=== PATIENT | male | born 1955 | race Caucasian/White ===

== ENCOUNTER 2020-07-25 04:16 | Emergency (ER) | payer OTHER, MEDICARE ==
[~2020-07-25] VITALS: Ht 185.4 cm; Wt 89.2 kg
[2020-07-25 04:28] VITALS: BP 151/95
[2020-07-25] MEDS ORDERED: LIDOcaine 2% 10ml TOPICAL JELLY (Urojet) MM ONE (04:50)
--- NOTE | 2020-07-25 05:10 | NUR ---
bladder scan >235 ml. Pt catheterized w/ 14 Martiniqu[place] coude using Urojet. 300 mls urine out.
[2020-07-25 05:13] LABS: CLARITY,URINE CLEAR (Clear); COLOR,URINE YELLOW (Yellow); GLUCOSE, URINE NEGATIVE (Neg); KETONES,URINE NEGATIVE (Neg); LEUKOCYTE ESTERASE ,URINE NEGATIVE (Neg); NITRITES, URINE NEGATIVE (Neg); OCCULT BLOOD,URINE NEGATIVE (Neg); PH,URINE 6.5 (4.8-8.0); PROTEIN,URINE NEGATIVE (Neg); UROBILINOGEN,URINE 0.2 E.U/dL (0.2-1.0)
[2020-07-25 05:19] LABS: UA COLLECTION TYPE CLN CATCH MIDSTREAM
[2020-07-25] MEDS ORDERED: FLO0.4C PO (05:27)
== END 2020-07-25 06:03 | disposition home or self-care (01) ==
LOC: ER 04:17
DX: R33.9 Retention of urine, unspecified (principal)
CPT/HCPCS: 51702; 81003; 99284

== ENCOUNTER 2020-08-02 18:21 | Emergency (ER) | payer OTHER, MEDICARE ==
[~2020-08-02] VITALS: Ht 182.9 cm; Wt 87.6 kg
[~2020-08-02 18:21] MED LIST: FLO0.4C PO
[2020-08-02] MEDS ORDERED: LIDOcaine 2% 10ml TOPICAL JELLY (Urojet) TP ONE (18:40)
[2020-08-02 18:46] LABS: CLARITY,URINE CLOUDY (Clear); COLOR,URINE STRAW (Yellow); GLUCOSE, URINE NEGATIVE (Neg); KETONES,URINE NEGATIVE (Neg); LEUKOCYTE ESTERASE ,URINE LARGE (Neg); NITRITES, URINE POSITIVE (Neg); OCCULT BLOOD,URINE SMALL (Neg); PH,URINE 6.5 (4.8-8.0); PROTEIN,URINE NEGATIVE (Neg); UROBILINOGEN,URINE 0.2 E.U/dL (0.2-1.0)
[2020-08-02 18:51] LABS: UA COLLECTION TYPE CLN CATCH MIDSTREAM
[2020-08-02 18:53] LABS: MUCUS STRANDS FEW /LPF (Neg); SQUAMOUS EPITHELIAL CELL,UR FEW /LPF (FEW); TRANSITIONAL EPI CELLS,URINE FEW /HPF
[2020-08-02 18:54] LABS: BACTERIA,URINE 4+ /HPF (Neg); WBC,URINE 30-50 /HPF (0-4)
[2020-08-02 18:55] LABS: RBC,URINE 0-2 /HPF (0-2)
--- NOTE | 2020-08-02 19:12 | NUR ---
PT BLADDER SCANNED BY JESSI MOSLEY PRIOR TO VOID BLADDER AT 129 ML . PT DECLINING CATH PLACEMENT . STATES HE HAS DISCOMFORT AND BURNING WITH THE CATH IN PLACE . STATES IT WAS REMOVED AT 12 TODAY AND WOULD LIKE TO AVOID HAVING IT PLACED IF POSSIBLE. SPOKE WITH DR Park ABOUT LABS BEING CANCELLED AND THE URINE CX SHOWING RESULTS OF A POSSIBLE UTI , NOTIFIED PRIMARY RN DORI OF BLADDER SCAN RESULTS AND PATIENT REFUSEAL OF CATH PLACEMNET UNTL HE SPEAKS TO THE MD .
[2020-08-02] MEDS ORDERED: acetaminophen 325mg tablet PO ONE (19:25)
[2020-08-02 21:02] VITALS: BP 122/78
[2020-08-02] MEDS ORDERED: cephalexin 250mg capsule PO ONE (21:40)
[2020-08-02] MEDS ORDERED: CEPH-572 PO ×2 (21:41→21:45)
[2020-08-02] MEDS ORDERED: PHEN-716 PO (21:45)
[2020-08-02] MEDS ORDERED: phenazopyridine 100mg tablet PO ONE (21:45)
[2020-08-03] MEDS ORDERED: CEPH-572 PO (02:37)
[2020-08-03] MEDS ORDERED: FLO0.4C PO (02:37)
[2020-08-03] MEDS ORDERED: PHEN-716 PO (02:37)
== END 2020-08-02 22:00 | disposition home or self-care (01) ==
LOC: ER 18:21
DX: N39.0 Urinary tract infection, site not specified (principal); R33.9 Retention of urine, unspecified; R10.30 Lower abdominal pain, unspecified; Z79.2 Long term (current) use of antibiotics; Z79.899 Other long term (current) drug therapy
CPT/HCPCS: 81001; 87077; 87088; 87186; 99284

== ENCOUNTER 2020-10-11 16:36 | Inpatient (IN) | payer OTHER, MEDICARE ==
[~2020-10-11] VITALS: Ht 365.8 cm; Wt 81.0 kg
[~2020-10-11 16:36] MED LIST changes: +APIX5TAB3 PO; +DILT180C66 PO; +PHEN-716 PO
[2020-10-11 17:01] LABS: CLARITY,URINE CLOUDY (Clear); COLOR,URINE AMBER (Yellow); GLUCOSE, URINE NEGATIVE (Neg); KETONES,URINE TRACE mg/dl (Neg); LEUKOCYTE ESTERASE ,URINE MODERATE (Neg); NITRITES, URINE POSITIVE (Neg); OCCULT BLOOD,URINE LARGE (Neg); PROTEIN,URINE >=300 mg/dl (Neg); UROBILINOGEN,URINE 0.2 E.U/dL (0.2-1.0)
[2020-10-11 17:05] LABS: UA COLLECTION TYPE FOLEY CATH
[2020-10-11 17:18] LABS: RBC,URINE TNTC /HPF (0-2); WBC,URINE TNTC /HPF (0-4)
[2020-10-11 17:19] LABS: BACTERIA,URINE 2+ /HPF (Neg); SQUAMOUS EPITHELIAL CELL,UR FEW /LPF (FEW)
[2020-10-11 17:20] LABS: MUCUS STRANDS FEW /LPF (Neg)
[2020-10-11 17:21] LABS: WBC CLUMPS,URINE FEW /HPF (NEGATIVE)
[2020-10-11] MEDS ORDERED: LIDOcaine 2% 10ml TOPICAL JELLY (Urojet) TP ONE (17:40)
[2020-10-11 18:14] LABS: BASOPHILS % (AUTO) 0.4 % (0-1); EOSINOPHILS # (AUTO) 0.1 X10'3 (0-0.9); EOSINOPHILS % (AUTO) 1.2 % (0-6); HEMATOCRIT 46.7 % (42.0-52.0); HEMOGLOBIN 15.9 g/dl (14.0-17.9); LYMPHOCYTES # (AUTO) 1.6 X10'3 (1.1-4.8); LYMPHOCYTES % (AUTO) 19.5 % (21-51); MEAN CORPUSCULAR HEMOGLOBIN 31.2 PG (27.0-31.0); MEAN CORPUSCULAR HGB CONC 34.1 g/dL (33.0-36.5); MEAN CORPUSCULAR VOLUME 91.6 FL (78-98); MEAN PLATELET VOLUME 8.5 FL (7.4-10.4); MONOCYTES % (AUTO) 12.1 % (2-12); NEUTROPHILS # (AUTO) 5.5 X10'3 (1.8-7.7); NEUTROPHILS % (AUTO) 66.8 % (42-75); PLATELET COUNT 295 X10'3 (140-440); RED CELL DISTRIBUTION WIDTH 13.7 % (11.5-14.5); WHITE BLOOD COUNT 8.2 X10'3 (4.5-11.0)
[2020-10-11 18:15] LABS: ALANINE AMINOTRANSFERASE 33 U/L (12-78); ALBUMIN 4.5 G/DL (3.4-5.0); ALBUMIN/GLOBULIN RATIO 1.4 (1.1-1.5); ALKALINE PHOSPHATASE 70 IU/L (46-116); ANION GAP 13 (8-16); ASPARTATE AMINO TRANSFERASE 23 U/L (10-37); BILIRUBIN,TOTAL 0.6 MG/DL (0.1-1.0); BLOOD UREA NITROGEN 37 MG/DL (7-18); BUN/CREATININE RATIO 30.6 (5.4-32.0); CALCIUM 9.9 MG/DL (8.5-10.1); CHLORIDE 106 MMOL/L (99-107); CREATININE 1.21 MG/DL (0.60-1.10); GLUCOSE 111 MG/DL (70-104); MAGNESIUM 2.1 MG/DL (1.5-2.4); SODIUM 142 MMOL/L (135-145); TOTAL CARBON DIOXIDE 22.6 MMOL/L (24-32); TOTAL PROTEIN 7.7 G/DL (6.4-8.2); eGFR 60 ML/MIN
[2020-10-11] MEDS ORDERED: diltiazem 5mg/ml 5ml inj. IV ONE (18:30)
[2020-10-11] MEDS ORDERED: normal saline 1000ml 1,000 ML IV ONE (18:30)
[2020-10-11] MEDS ORDERED: CefTRIAXone/D5W-Rocephin 1gm 50 ML IV STA (19:14)
[2020-10-11] MEDS ORDERED: acetaminophen 325mg tablet PO PRN (20:30)
[2020-10-11] MEDS ORDERED: potassium Cl 20 mEq SR tablet PO PRN (20:30)
[2020-10-11] MEDS ORDERED: mag hydrox/Alum hydrox/simeth 30ml oral suspension PO PRN (20:30)
[2020-10-11] MEDS ORDERED: magnesium hydroxide 30ml (MOM) UD suspension PO PRN (20:30)
[2020-10-11] MEDS ORDERED: magnesium Cl slow-release 64mg tablet PO PRN (20:30)
[2020-10-11] MEDS ORDERED: magnesium 4gm in 100ml NS 100 ML IV PRN (20:30)
[2020-10-11] MEDS ORDERED: diltiazem 30mg tablet PO ONE (20:30)
[2020-10-11] MEDS ORDERED: magnesium 2GM in 50ml NS 50 ML IV PRN (20:30)
[2020-10-11] MEDS ORDERED: HYDROcodone/acetaminophen 5mg/325mg tablet PO PRN (20:30)
[2020-10-11] MEDS ORDERED: potassium Cl 40MEQ/1/2NS 520ml 520 ML IV PRN ×2 (20:30)
[2020-10-11] MEDS ORDERED: ondansetron/PF 4mg/2ml inj IV PRN (20:30)
[2020-10-11] MEDS: normal saline 1000ml 1,000 ML IV SCH (21:10)
[2020-10-11 22:00] VITALS: BP 131/97
--- NOTE | 2020-10-11 23:25 | NUR ---
Negro placed in ED before arriving to floor Addendum: 10/11/20 at 2326 by Jolanta Cerrato RN Amended: Links added.
[2020-10-12] MEDS: morphine 2 MG/ML inj. syringe IV PRN ×2 (01:23→16:28)
[2020-10-12 02:00] VITALS: BP 104/62
[2020-10-12] MEDS: temazepam 15mg capsule PO PRN (02:54)
--- NOTE | 2020-10-12 06:35 | NUR ---
Patient in room PCU 3016. I have received report from JESSI Stover and had the opportunity to ask questions and assume patient care.
[2020-10-12 07:00] VITALS: BP 115/77
[2020-10-12 07:19] LABS: BASOPHILS % (AUTO) 0.4 % (0-1); EOSINOPHILS # (AUTO) 0.2 X10'3 (0-0.9); EOSINOPHILS % (AUTO) 3.5 % (0-6); HEMOGLOBIN 14.1 g/dl (14.0-17.9); LYMPHOCYTES % (AUTO) 29.8 % (21-51); MEAN CORPUSCULAR HEMOGLOBIN 31.6 PG (27.0-31.0); MEAN CORPUSCULAR HGB CONC 34.3 g/dL (33.0-36.5); MEAN CORPUSCULAR VOLUME 92.1 FL (78-98); MEAN PLATELET VOLUME 8.5 FL (7.4-10.4); MONOCYTES % (AUTO) 14.5 % (2-12); NEUTROPHILS # (AUTO) 3.5 X10'3 (1.8-7.7); NEUTROPHILS % (AUTO) 51.8 % (42-75); PLATELET COUNT 244 X10'3 (140-440); RED BLOOD COUNT 4.45 X10'6 (4.70-6.10); RED CELL DISTRIBUTION WIDTH 13.2 % (11.5-14.5); WHITE BLOOD COUNT 6.8 X10'3 (4.5-11.0)
[2020-10-12 07:42] LABS: ALANINE AMINOTRANSFERASE 28 U/L (12-78); ALBUMIN 3.5 G/DL (3.4-5.0); ALBUMIN/GLOBULIN RATIO 1.3 (1.1-1.5); ANION GAP 9 (8-16); ASPARTATE AMINO TRANSFERASE 19 U/L (10-37); BILIRUBIN,TOTAL 0.9 MG/DL (0.1-1.0); BLOOD UREA NITROGEN 27 MG/DL (7-18); BUN/CREATININE RATIO 26.5 (5.4-32.0); CALCIUM 8.5 MG/DL (8.5-10.1); CHLORIDE 105 MMOL/L (99-107); CREATININE 1.02 MG/DL (0.60-1.10); GLUCOSE 91 MG/DL (70-104); POTASSIUM 3.3 MMOL/L (3.5-5.1); SODIUM 140 MMOL/L (135-145); TOTAL CARBON DIOXIDE 25.8 MMOL/L (24-32); TOTAL PROTEIN 6.3 G/DL (6.4-8.2); eGFR 73 ML/MIN
[2020-10-12 07:59] LABS: ALKALINE PHOSPHATASE 56 IU/L (46-116)
[2020-10-12] MEDS: tamsulosin 0.4mg capsule PO SCH (08:30)
[2020-10-12] MEDS: normal saline 1000ml 1,000 ML IV SCH ×2 (08:30→16:28)
[2020-10-12] MEDS: apixaban 5mg tablet PO SCH ×2 (08:30→21:38)
[2020-10-12] MEDS: diltiazem CD 180mg cap (once-daily) PO SCH (08:30)
[2020-10-12] MEDS: CefTRIAXone/D5W-Rocephin 1gm 50 ML IV SCH (08:30)
[2020-10-12] MEDS: potassium Cl 20 mEq SR tablet PO PRN ×3 (08:54→21:38)
[2020-10-12] MEDS: K and/or MAG REPLACEMENT MC SCH ×2 (08:55→20:00)
[2020-10-12 11:00] VITALS: BP 124/85
[2020-10-12] MEDS: oxybutynin 5mg tablet PO SCH ×2 (13:14→21:38)
[2020-10-12] MEDS: phenazopyridine 100mg tablet PO SCH ×2 (13:14→18:49)
[2020-10-12 15:00] VITALS: BP 102/68
--- NOTE | 2020-10-12 17:46 | NUR ---
Paged Dr Bucky Goodman, Kole [id number] The ER has had the bladder scanner, I will let NOC nurse know to scan pt when scanner arrives back. Thanks Nadine [phone]
--- NOTE | 2020-10-12 18:09 | NUR ---
Problems reprioritized. Patient report given, questions answered & plan of care reviewed with JESSI Stover. Pt resting at change of shift.
[2020-10-12 19:00] VITALS: BP 103/78
--- NOTE | 2020-10-12 20:14 | NUR ---
Notified Dr hill scanned patient, with amount of 95cc. He voided 35 cc however he is still leaking urine around banerjee. Unable to calculate exact void amount due to leakage Awaiting response/orders
[2020-10-12] MEDS: lactobacillus rhamnosus 10,000 MMU CELLS/CAPSULE PO SCH (21:38)
[2020-10-12 22:00] VITALS: BP 107/71
[2020-10-13] MEDS: temazepam 15mg capsule PO PRN (00:35)
[2020-10-13 02:00] VITALS: BP 96/70
[2020-10-13 06:00] VITALS: BP 129/78
--- NOTE | 2020-10-13 06:19 | NUR ---
Patient in room PCU 3016. I have received report from JESSI Stover and had the opportunity to ask questions and assume patient care.
[2020-10-13 06:48] LABS: BASOPHILS % (AUTO) 0.6 % (0-1); EOSINOPHILS # (AUTO) 0.2 X10'3 (0-0.9); EOSINOPHILS % (AUTO) 4.2 % (0-6); LYMPHOCYTES # (AUTO) 1.8 X10'3 (1.1-4.8); LYMPHOCYTES % (AUTO) 31.2 % (21-51); MEAN CORPUSCULAR HEMOGLOBIN 31.9 PG (27.0-31.0); MEAN CORPUSCULAR HGB CONC 34.8 g/dL (33.0-36.5); MEAN CORPUSCULAR VOLUME 91.8 FL (78-98); MEAN PLATELET VOLUME 8.2 FL (7.4-10.4); MONOCYTES # (AUTO) 0.8 X10'3 (0-0.9); MONOCYTES % (AUTO) 13.1 % (2-12); NEUTROPHILS % (AUTO) 50.9 % (42-75); PLATELET COUNT 252 X10'3 (140-440); RED BLOOD COUNT 4.69 X10'6 (4.70-6.10); RED CELL DISTRIBUTION WIDTH 13.1 % (11.5-14.5); WHITE BLOOD COUNT 5.8 X10'3 (4.5-11.0)
[2020-10-13 07:11] LABS: ALANINE AMINOTRANSFERASE 26 U/L (12-78); ALBUMIN 3.7 G/DL (3.4-5.0); ALBUMIN/GLOBULIN RATIO 1.2 (1.1-1.5); ALKALINE PHOSPHATASE 56 IU/L (46-116); ANION GAP 10 (8-16); ASPARTATE AMINO TRANSFERASE 18 U/L (10-37); BLOOD UREA NITROGEN 18 MG/DL (7-18); BUN/CREATININE RATIO 18.2 (5.4-32.0); CHLORIDE 106 MMOL/L (99-107); CREATININE 0.99 MG/DL (0.60-1.10); GLUCOSE 96 MG/DL (70-104); MAGNESIUM 2.3 MG/DL (1.5-2.4); POTASSIUM 3.9 MMOL/L (3.5-5.1); SODIUM 141 MMOL/L (135-145); TOTAL CARBON DIOXIDE 24.8 MMOL/L (24-32); TOTAL PROTEIN 6.7 G/DL (6.4-8.2); eGFR 76 ML/MIN
[2020-10-13] MEDS: K and/or MAG REPLACEMENT MC SCH ×2 (08:00→20:00)
[2020-10-13] MEDS: CefTRIAXone/D5W-Rocephin 1gm 50 ML IV SCH (09:08)
[2020-10-13] MEDS: diltiazem CD 180mg cap (once-daily) PO SCH (09:09)
[2020-10-13] MEDS: apixaban 5mg tablet PO SCH ×2 (09:09→19:55)
[2020-10-13] MEDS: phenazopyridine 100mg tablet PO SCH ×3 (09:09→19:55)
[2020-10-13] MEDS: tamsulosin 0.4mg capsule PO SCH (09:09)
[2020-10-13] MEDS: oxybutynin 5mg tablet PO SCH ×3 (09:09→18:11)
[2020-10-13] MEDS: lactobacillus rhamnosus 10,000 MMU CELLS/CAPSULE PO SCH ×2 (09:09→19:55)
[2020-10-13 11:00] VITALS: BP 114/87
[2020-10-13] MEDS ORDERED: opium/belladonna alkaloids No. 15A 30mg rectal suppository RC PRN (11:50)
[2020-10-13] MEDS: levoFLOXACIN 500mg tablet PO SCH (13:11)
[2020-10-13 15:00] VITALS: BP 100/64
[2020-10-13 18:00] VITALS: BP 117/70
--- NOTE | 2020-10-13 18:28 | NUR ---
Problems reprioritized. Patient report given, questions answered & plan of care reviewed with JESSI Breen. All pt needs met at this time.
--- NOTE | 2020-10-13 18:30 | NUR ---
Patient in room U 3016. I have received report from JESSI Mccoy and had the opportunity to ask questions and assume patient care. Patient resting in bed, no signs of distress. Safety measures in place, bed in low and locked position. Call light and personal items within reach. Will continue to monitor throughout shift.
[2020-10-13 22:00] VITALS: BP 114/80
[2020-10-14 02:00] VITALS: BP 113/82
--- NOTE | 2020-10-14 06:31 | NUR ---
Patient in room PCU 3016. I have received report from JESSI Breen and had the opportunity to ask questions and assume patient care. Pt sleeping comfortably at change of shift.
[2020-10-14 07:00] VITALS: BP 115/77
[2020-10-14 07:00] LABS: BASOPHILS % (AUTO) 0.8 % (0-1); EOSINOPHILS # (AUTO) 0.2 X10'3 (0-0.9); EOSINOPHILS % (AUTO) 3.9 % (0-6); HEMATOCRIT 44.3 % (42.0-52.0); HEMOGLOBIN 15.2 g/dl (14.0-17.9); LYMPHOCYTES # (AUTO) 1.6 X10'3 (1.1-4.8); LYMPHOCYTES % (AUTO) 25.2 % (21-51); MEAN CORPUSCULAR HEMOGLOBIN 31.2 PG (27.0-31.0); MEAN CORPUSCULAR HGB CONC 34.2 g/dL (33.0-36.5); MEAN CORPUSCULAR VOLUME 91.3 FL (78-98); MEAN PLATELET VOLUME 8.5 FL (7.4-10.4); MONOCYTES # (AUTO) 0.9 X10'3 (0-0.9); MONOCYTES % (AUTO) 13.9 % (2-12); NEUTROPHILS # (AUTO) 3.5 X10'3 (1.8-7.7); NEUTROPHILS % (AUTO) 56.2 % (42-75); PLATELET COUNT 265 X10'3 (140-440); RED BLOOD COUNT 4.86 X10'6 (4.70-6.10); RED CELL DISTRIBUTION WIDTH 13.3 % (11.5-14.5); WHITE BLOOD COUNT 6.2 X10'3 (4.5-11.0)
--- NOTE | 2020-10-14 07:03 | NUR ---
Problems reprioritized. Patient report given, questions answered & plan of care reviewed with JESSI Mccoy. VSS. Medications administered as ordered. Safety measures in place, bed in low and locked position. Call light and personal items within reach. Will continue to monitor throughout shift.
[2020-10-14 07:58] LABS: ALANINE AMINOTRANSFERASE 26 U/L (12-78); ALBUMIN 3.8 G/DL (3.4-5.0); ALBUMIN/GLOBULIN RATIO 1.2 (1.1-1.5); ALKALINE PHOSPHATASE 58 IU/L (46-116); ANION GAP 10 (8-16); ASPARTATE AMINO TRANSFERASE 15 U/L (10-37); BILIRUBIN,TOTAL 0.9 MG/DL (0.1-1.0); CHLORIDE 105 MMOL/L (99-107); CREATININE 1.15 MG/DL (0.60-1.10); GLUCOSE 96 MG/DL (70-104); MAGNESIUM 2.2 MG/DL (1.5-2.4); POTASSIUM 3.7 MMOL/L (3.5-5.1); SODIUM 141 MMOL/L (135-145); TOTAL CARBON DIOXIDE 26.5 MMOL/L (24-32); eGFR 64 ML/MIN
[2020-10-14] MEDS ORDERED: diltiazem CD 120mg capsule (once-daily) PO SCH (08:00)
[2020-10-14] MEDS ORDERED: diltiazem CD 180mg cap (once-daily) PO SCH (08:00)
[2020-10-14] MEDS: K and/or MAG REPLACEMENT MC SCH ×2 (08:00→20:00)
[2020-10-14 08:20] LABS: BLOOD UREA NITROGEN 22 MG/DL (7-18); BUN/CREATININE RATIO 19.1 (5.4-32.0)
[2020-10-14] MEDS: tamsulosin 0.4mg capsule PO SCH (09:05)
[2020-10-14] MEDS: apixaban 5mg tablet PO SCH ×2 (09:05→20:46)
[2020-10-14] MEDS: phenazopyridine 100mg tablet PO SCH ×3 (09:05→20:45)
[2020-10-14] MEDS: lactobacillus rhamnosus 10,000 MMU CELLS/CAPSULE PO SCH ×2 (09:05→20:45)
[2020-10-14] MEDS: oxybutynin 5mg tablet PO SCH ×5 (09:07→20:46)
[2020-10-14 11:00] VITALS: BP 122/79
[2020-10-14] MEDS: levoFLOXACIN 500mg tablet PO SCH (11:47)
[2020-10-14 15:00] VITALS: BP 104/76
[2020-10-14] MEDS ORDERED: iohexol 300mg/ml 100ml inj. ONE (15:34)
[2020-10-14] MEDS: fluconazole 100mg tablet PO SCH (16:09)
[2020-10-14] MEDS: normal saline 1000ml 1,000 ML IV SCH (16:12)
[2020-10-14 18:00] VITALS: BP 113/74
--- NOTE | 2020-10-14 18:27 | NUR ---
Problems reprioritized. Patient report given, questions answered & plan of care reviewed with JESSI Breen. Pt sitting up in bed watching tv at change of shift. All pt needs met at this time.
[2020-10-14 22:00] VITALS: BP 109/69
[2020-10-14] MEDS ORDERED: nitroGLYCERIN 0.4mg SUBLingual tab SL PRN (22:30)
[2020-10-14] MEDS ORDERED: aminophylline 250mg/10ml inj. IV PRN (22:30)
[2020-10-14] MEDS ORDERED: metoprolol tartrate 1mg/ml inj IV PRN (22:30)
[2020-10-14] MEDS ORDERED: regadenoson 0.4mg/5ml syringe IV ONE (22:30)
[2020-10-14] MEDS: temazepam 15mg capsule PO PRN ×2 (22:41)
[2020-10-15] VITALS (14 sets, daily range): BP systolic 106–130; BP diastolic 64–84
[2020-10-15] MEDS: normal saline 1000ml 1,000 ML IV SCH ×3 (00:15→15:44)
[2020-10-15 06:10] LABS: BASOPHILS % (AUTO) 0.7 % (0-1); EOSINOPHILS # (AUTO) 0.3 X10'3 (0-0.9); EOSINOPHILS % (AUTO) 4.8 % (0-6); HEMATOCRIT 44.3 % (42.0-52.0); HEMOGLOBIN 15.1 g/dl (14.0-17.9); LYMPHOCYTES # (AUTO) 1.8 X10'3 (1.1-4.8); MEAN CORPUSCULAR HEMOGLOBIN 31.1 PG (27.0-31.0); MEAN CORPUSCULAR HGB CONC 34.2 g/dL (33.0-36.5); MEAN PLATELET VOLUME 8.5 FL (7.4-10.4); MONOCYTES # (AUTO) 0.8 X10'3 (0-0.9); NEUTROPHILS # (AUTO) 3.1 X10'3 (1.8-7.7); NEUTROPHILS % (AUTO) 51.5 % (42-75); PLATELET COUNT 257 X10'3 (140-440); RED BLOOD COUNT 4.86 X10'6 (4.70-6.10); RED CELL DISTRIBUTION WIDTH 13.1 % (11.5-14.5)
--- NOTE | 2020-10-15 06:18 | NUR ---
Patient in room PCU 3016. I have received report from JESSI Breen and had the opportunity to ask questions and assume patient care.
--- NOTE | 2020-10-15 06:42 | NUR ---
Problems reprioritized. Patient report given, questions answered & plan of care reviewed with JESSI Ceja. VSS. Medications administered as ordered. Care plan followed. Safety measures in place, bed in low and locked position. Call light and personal items within reach. Will continue to monitor for remainder of shift.
[2020-10-15 06:55] LABS: ALANINE AMINOTRANSFERASE 26 U/L (12-78); ALBUMIN 3.6 G/DL (3.4-5.0); ALBUMIN/GLOBULIN RATIO 1.2 (1.1-1.5); ALKALINE PHOSPHATASE 58 IU/L (46-116); ANION GAP 11 (8-16); ASPARTATE AMINO TRANSFERASE 14 U/L (10-37); BILIRUBIN,TOTAL 0.8 MG/DL (0.1-1.0); BLOOD UREA NITROGEN 21 MG/DL (7-18); BUN/CREATININE RATIO 18.1 (5.4-32.0); CHLORIDE 107 MMOL/L (99-107); CREATININE 1.16 MG/DL (0.60-1.10); GLUCOSE 93 MG/DL (70-104); MAGNESIUM 2.2 MG/DL (1.5-2.4); POTASSIUM 3.9 MMOL/L (3.5-5.1); SODIUM 143 MMOL/L (135-145); TOTAL CARBON DIOXIDE 25.5 MMOL/L (24-32); TOTAL PROTEIN 6.7 G/DL (6.4-8.2); eGFR 63 ML/MIN
[2020-10-15] MEDS: apixaban 5mg tablet PO SCH (07:57)
[2020-10-15] MEDS: tamsulosin 0.4mg capsule PO SCH (07:57)
[2020-10-15] MEDS: lactobacillus rhamnosus 10,000 MMU CELLS/CAPSULE PO SCH ×2 (07:57→19:56)
[2020-10-15] MEDS: oxybutynin 5mg tablet PO SCH ×4 (07:57→19:56)
[2020-10-15] MEDS: fluconazole 100mg tablet PO SCH (07:58)
[2020-10-15] MEDS: K and/or MAG REPLACEMENT MC SCH ×2 (08:00→20:00)
[2020-10-15] MEDS: diltiazem CD 120mg capsule (once-daily) PO SCH ×2 (08:00→11:28)
--- NOTE | 2020-10-15 09:02 | NUR ---
Patient down to Nuc Med.
--- NOTE | 2020-10-15 11:00 | NUR ---
Patient returned back to room 3016A.
[2020-10-15] MEDS: levoFLOXACIN 500mg tablet PO SCH (11:14)
--- NOTE | 2020-10-15 11:18 | NUR ---
Dr. Cortez in to see patient.
--- NOTE | 2020-10-15 11:22 | NUR ---
Dr. Cortez aware patient's HR 133 and has ok that patient's morning dose of cardizem that was held due to Karo scan procedure be given now.
--- NOTE | 2020-10-15 18:19 | NUR ---
Problems reprioritized. Patient report given, questions answered & plan of care reviewed with JESSI STALEY.
[2020-10-15] MEDS: temazepam 15mg capsule PO PRN (22:58)
[2020-10-16 03:00] VITALS: BP 115/85
[2020-10-16] MEDS: normal saline 1000ml 1,000 ML IV SCH ×2 (06:15→16:15)
[2020-10-16 07:00] VITALS: BP 120/82
[2020-10-16 07:06] LABS: BASOPHILS % (AUTO) 0.8 % (0-1); EOSINOPHILS # (AUTO) 0.3 X10'3 (0-0.9); EOSINOPHILS % (AUTO) 5.3 % (0-6); HEMOGLOBIN 14.4 g/dl (14.0-17.9); LYMPHOCYTES # (AUTO) 1.6 X10'3 (1.1-4.8); LYMPHOCYTES % (AUTO) 27.6 % (21-51); MEAN CORPUSCULAR HEMOGLOBIN 31.4 PG (27.0-31.0); MEAN CORPUSCULAR HGB CONC 34.3 g/dL (33.0-36.5); MEAN CORPUSCULAR VOLUME 91.4 FL (78-98); MEAN PLATELET VOLUME 8.4 FL (7.4-10.4); MONOCYTES # (AUTO) 0.7 X10'3 (0-0.9); MONOCYTES % (AUTO) 12.7 % (2-12); NEUTROPHILS # (AUTO) 3.1 X10'3 (1.8-7.7); NEUTROPHILS % (AUTO) 53.6 % (42-75); PLATELET COUNT 258 X10'3 (140-440); RED BLOOD COUNT 4.59 X10'6 (4.70-6.10); RED CELL DISTRIBUTION WIDTH 13.4 % (11.5-14.5); WHITE BLOOD COUNT 5.8 X10'3 (4.5-11.0)
--- NOTE | 2020-10-16 07:06 | NUR ---
Patient in room PCU 3016. I have received report from Rosalie BOWEN and had the opportunity to ask questions and assume patient care.
[2020-10-16 07:45] LABS: ALANINE AMINOTRANSFERASE 28 U/L (12-78); ALBUMIN 3.4 G/DL (3.4-5.0); ALBUMIN/GLOBULIN RATIO 1.2 (1.1-1.5); ALKALINE PHOSPHATASE 57 IU/L (46-116); ANION GAP 11 (8-16); ASPARTATE AMINO TRANSFERASE 19 U/L (10-37); BILIRUBIN,TOTAL 0.6 MG/DL (0.1-1.0); BLOOD UREA NITROGEN 19 MG/DL (7-18); BUN/CREATININE RATIO 19.8 (5.4-32.0); CALCIUM 8.7 MG/DL (8.5-10.1); CHLORIDE 110 MMOL/L (99-107); CREATININE 0.96 MG/DL (0.60-1.10); GLUCOSE 95 MG/DL (70-104); MAGNESIUM 2.1 MG/DL (1.5-2.4); SODIUM 145 MMOL/L (135-145); TOTAL CARBON DIOXIDE 23.7 MMOL/L (24-32); TOTAL PROTEIN 6.2 G/DL (6.4-8.2); eGFR 79 ML/MIN
[2020-10-16] MEDS: K and/or MAG REPLACEMENT MC SCH ×2 (08:00→19:40)
[2020-10-16] MEDS: oxybutynin 5mg tablet PO SCH ×4 (08:54→19:38)
[2020-10-16] MEDS: tamsulosin 0.4mg capsule PO SCH (08:54)
[2020-10-16] MEDS: lactobacillus rhamnosus 10,000 MMU CELLS/CAPSULE PO SCH ×2 (08:54→19:39)
[2020-10-16] MEDS: diltiazem CD 120mg capsule (once-daily) PO SCH (08:54)
[2020-10-16] MEDS: fluconazole 100mg tablet PO SCH (08:59)
[2020-10-16 11:00] VITALS: BP 123/82
[2020-10-16] MEDS: levoFLOXACIN 500mg tablet PO SCH (11:19)
[2020-10-16] MEDS ORDERED: naphazoline/pheniramine eye 1 DROP BOTTLE EACHEYE PRN (11:35)
[2020-10-16 15:00] VITALS: BP 120/85
--- NOTE | 2020-10-16 16:48 | NUR ---
Initial: Pt admit DX pelvic mass, catheter-associated UTI, ALFRDEO, CAD, BPH, and painful bladder spasms per EMR. Pt PO 75-100% avg heart healthy diet meeting needs. Noted current ht error 144in; true ht 72in making BMI 24. LBM 10/14. No nutrition concerns at this time. Will continue to monitor. Rec: 1. continue heart healthy diet 2. bowel care per rx 3. wt per rx Addendum: 10/16/20 at [address] Amended: Links added.
--- NOTE | 2020-10-16 18:12 | NUR ---
Problems reprioritized. Patient report given, questions answered & plan of care reviewed with Rosalie BOWEN.
[2020-10-16] MEDS: temazepam 15mg capsule PO PRN (23:30)
[2020-10-17] MEDS: normal saline 1000ml 1,000 ML IV SCH ×2 (02:19→12:15)
--- NOTE | 2020-10-17 06:19 | NUR ---
Problems reprioritized. Patient report given, questions answered & plan of care reviewed with JESSI CHAPMAN.
--- NOTE | 2020-10-17 06:21 | NUR ---
Problems reprioritized. Patient report given, questions answered & plan of care reviewed with JESSI JEAN.
--- NOTE | 2020-10-17 06:36 | NUR ---
Patient in room PCU 3016. I have received report from Rosalie BOWEN and had the opportunity to ask questions and assume patient care.
[2020-10-17 07:00] VITALS: BP_SYST 122; BP_SYST 130; BP_DIAS 81; BP_DIAS 82
[2020-10-17] MEDS: lactobacillus rhamnosus 10,000 MMU CELLS/CAPSULE PO SCH (07:11)
[2020-10-17] MEDS: oxybutynin 5mg tablet PO SCH (07:11)
[2020-10-17] MEDS: diltiazem CD 120mg capsule (once-daily) PO SCH (07:11)
[2020-10-17] MEDS: tamsulosin 0.4mg capsule PO SCH (07:11)
[2020-10-17] MEDS: K and/or MAG REPLACEMENT MC SCH (08:00)
[2020-10-17] MEDS: fluconazole 100mg tablet PO SCH (09:24)
--- NOTE | 2020-10-17 10:32 | NUR ---
IR obtaining consent for biopsy, patient going to IR at this time.
--- NOTE | 2020-10-17 10:55 | NUR ---
Patient returned from IR, biopsy not performed as Dr. Reid is going to compare records to prior scan and see if biopsy is even needed. Pt. will remain NPO at this time until further notice.
[2020-10-17 11:00] VITALS: BP 130/81
[2020-10-17] MEDS: levoFLOXACIN 500mg tablet PO SCH (11:38)
[2020-10-17] MEDS ORDERED: FLUC100T PO (13:00)
[2020-10-17] MEDS ORDERED: OXYB5TAB16 PO (13:00)
[2020-10-17] MEDS ORDERED: CIPR-230 PO (13:00)
[2020-10-17] MEDS ORDERED: CARCD120C PO (13:00)
--- NOTE | 2020-10-17 14:23 | NUR ---
Biopsy was not performed. Patient will f/u outpatient. Patient will also F/U with urologist. Discharge instructions and new medications reviewed with patient. Kole verbalized understanding and in agreement with POC. Tele and PIV removed. Patient left in stable condition.
== END 2020-10-17 13:58 | disposition home or self-care (01) | DRG 699 ==
LOC: ER 16:37 → ED HOLD 20:29 → PCU 3S 21:50
PROVIDERS: ADMIT Family Medicine; ATTEND Family Medicine
DX: T83.511A Infection and inflammatory reaction due to indwelling urethral catheter, initial encounter (principal); N17.9 Acute kidney failure, unspecified; I48.19 Other persistent atrial fibrillation; B96.89 Other specified bacterial agents as the cause of diseases classified elsewhere; Z79.01 Long term (current) use of anticoagulants; N40.1 Benign prostatic hyperplasia with lower urinary tract symptoms; Y83.8 Other surgical procedures as the cause of abnormal reaction of the patient, or of later complication, without mention of misadventure at the time of the procedure; Y92.89 Other specified places as the place of occurrence of the external cause; R31.9 Hematuria, unspecified; R33.8 Other retention of urine; Z79.899 Other long term (current) drug therapy; I25.10 Atherosclerotic heart disease of native coronary artery without angina pectoris; E87.6 Hypokalemia; N32.89 Other specified disorders of bladder; R19.00 Intra-abdominal and pelvic swelling, mass and lump, unspecified site; Z87.440 Personal history of urinary (tract) infections
CPT/HCPCS: 36415; 74177; 78452; 80053; 81001; 83735; 83880; 84443; 84484; 85025; 87077; 87081; 87088; 87186; 93005; 93017; 93308; 96374; 99291; A9500; G0378; J0696; J2270; J2785; J3490; J7030; Q9967

== ENCOUNTER 2020-11-09 22:29 | Emergency (ER) | payer OTHER, MEDICARE ==
[~2020-11-09] VITALS: Ht 182.9 cm; Wt 88.6 kg
[~2020-11-09 22:29] MED LIST changes: +CARCD120C PO; +CIPR-230 PO; -DILT180C66 PO; +FLUC100T PO; +OXYB5TAB16 PO; -PHEN-716 PO
[2020-11-09] MEDS ORDERED: phenazopyridine 100mg tablet PO ONE (23:10)
--- NOTE | 2020-11-09 23:43 | NUR ---
banerjee flushed with 2000 cc's sterile water. Pt taught how to flush and given supplies. pt with stable vs and no pain.
--- NOTE | 2020-11-10 00:17 | NUR ---
PT WITH NO PAIN AND LIGHT [place] URINE IN POZO TUBING, NO CLOTS NOTED. PT TAUGHT HOW TO IRRIGATE POZO AND GIVEN SUPPLIES. DR. PRYOR UPDATED AND TO DC PT. PT WITH STABLE VS.
[2020-11-10 01:19] VITALS: BP 104/75
== END 2020-11-10 01:22 | disposition home or self-care (01) ==
LOC: ER 22:30
DX: I48.91 Unspecified atrial fibrillation (principal); R31.0 Gross hematuria; R33.9 Retention of urine, unspecified; R31.9 Hematuria, unspecified; R10.2 Pelvic and perineal pain; Z87.440 Personal history of urinary (tract) infections; Z79.2 Long term (current) use of antibiotics; Z79.899 Other long term (current) drug therapy
CPT/HCPCS: 51702; 99284

== ENCOUNTER 2024-05-05 03:00 | Emergency (ER) | payer OTHER, MEDICARE ==
[~2024-05-05] VITALS: Ht 182.9 cm; Wt 88.6 kg
[~2024-05-05 03:00] MED LIST changes: -CIPR-230 PO; -FLUC100T PO; -OXYB5TAB16 PO; +OXYB5TAB21 PO
[2024-05-05 03:45] LABS: COLOR,URINE RED (Yellow); UA COLLECTION TYPE URINAL
[2024-05-05 03:46] LABS: CLARITY,URINE CLOUDY (Clear)
[2024-05-05 03:51] LABS: RBC,URINE TNTC /HPF (0-2)
[2024-05-05 03:53] LABS: BACTERIA,URINE 1+ /HPF (Neg); MUCUS STRANDS NONE SEEN /LPF (Neg); SQUAMOUS EPITHELIAL CELL,UR FEW /LPF (FEW)
[2024-05-05] MEDS ORDERED: LIDOcaine 2% jelly 6ml syringe ***for topical use only MM ONE (04:15)
[2024-05-05] MEDS ORDERED: LidoCAINE 2% Topical Jelly 11mL syringe (UROJET) TOP ONE (04:20)
[2024-05-05] MEDS: LidoCAINE 2% Topical Jelly 11mL syringe (UROJET) MM ONE (04:47)
[2024-05-05] MEDS ORDERED: CEPH-585 PO (04:59)
[2024-05-05] MEDS ORDERED: FLO0.4C PO (04:59)
[2024-05-05] MEDS: cephalexin 250mg capsule PO ONE (05:13)
[2024-05-05] MEDS: tamsulosin 0.4mg capsule PO ONE (05:13)
[2024-05-05 05:42] VITALS: BP 141/84; PULSE 71; RESP 14; TEMP 98.3; O2SAT 94
== END 2024-05-05 05:45 | disposition home or self-care (01) ==
LOC: ER 03:01
DX: R33.9 Retention of urine, unspecified (principal); R31.9 Hematuria, unspecified; I48.91 Unspecified atrial fibrillation; Z79.899 Other long term (current) drug therapy
CPT/HCPCS: 51702; 81001; 87088; 99284; A4314; A4340; A4358; A5200

== ENCOUNTER 2024-05-10 06:02 | Emergency (ER) | payer OTHER, MEDICARE ==
[~2024-05-10] VITALS: Ht 182.9 cm; Wt 195.0 kg
[~2024-05-10 06:02] MED LIST changes: +CEPH-585 PO
[2024-05-10 07:10] LABS: BASOPHILS % (AUTO) 0.5 % (0-1); EOSINOPHILS # (AUTO) 0.1 X10'3 (0-0.9); EOSINOPHILS % (AUTO) 1.3 % (0-6); HEMATOCRIT 38.3 % (42.0-52.0); HEMOGLOBIN 12.9 g/dl (14.0-17.9); LYMPHOCYTES # (AUTO) 1.3 X10'3 (1.1-4.8); LYMPHOCYTES % (AUTO) 23.3 % (21-51); MEAN CORPUSCULAR HGB CONC 33.8 g/dL (33.0-36.5); MEAN CORPUSCULAR VOLUME 94.6 FL (78-98); MEAN PLATELET VOLUME 7.5 FL (7.4-10.4); MONOCYTES # (AUTO) 0.7 X10'3 (0-0.9); NEUTROPHILS # (AUTO) 3.7 X10'3 (1.8-7.7); NEUTROPHILS % (AUTO) 62.9 % (42-75); PLATELET COUNT 324 X10'3 (140-440); RED BLOOD COUNT 4.05 X10'6 (4.70-6.10); RED CELL DISTRIBUTION WIDTH 12.9 % (11.5-14.5); WHITE BLOOD COUNT 5.8 X10'3 (4.5-11.0)
[2024-05-10 07:18] LABS: ANION GAP 10 (8-16); BLOOD UREA NITROGEN 23 MG/DL (7-18); BUN/CREATININE RATIO 17.7 (10.0-20.0); CALCIUM 9.8 MG/DL (8.5-10.1); CHLORIDE 106 MMOL/L (99-107); GLUCOSE 112 MG/DL (70-104); POTASSIUM 3.6 MMOL/L (3.5-5.1); SODIUM 139 MMOL/L (135-145); TOTAL CARBON DIOXIDE 23.3 MMOL/L (24-32); eCRCL 60 ML/MIN; eGFR 55 ML/MIN
[2024-05-10] MEDS: LidoCAINE 2% Topical Jelly 11mL syringe (UROJET) TOP ONE ×3 (07:42→09:36)
[2024-05-10] MEDS: metoclopramide 5 mg/ml inj IV ONE (07:43)
[2024-05-10] MEDS: morphine 4 MG/ML inj SYRINge IV ONE ×2 (07:43→08:19)
[2024-05-10 09:05] LABS: CLARITY,URINE CLOUDY (Clear); COLOR,URINE BROWN (Yellow)
[2024-05-10 09:09] LABS: UA COLLECTION TYPE FOLEY CATH
[2024-05-10 09:12] LABS: BACTERIA,URINE 1+ /HPF (Neg); MUCUS STRANDS NONE SEEN /LPF (Neg); RBC,URINE TNTC /HPF (0-2); SQUAMOUS EPITHELIAL CELL,UR FEW /LPF (FEW)
[2024-05-10] MEDS: normal saline 1000ML IV soln IVB ONE (10:25)
[2024-05-10] MEDS ORDERED: FLO0.4C PO (11:35)
[2024-05-10 11:58] VITALS: BP 125/79; PULSE 73; RESP 15; TEMP 98.9; O2SAT 99
[2024-05-10] MEDS ORDERED: CIPR750T14 PO (22:03)
== END 2024-05-10 12:00 | disposition home or self-care (01) ==
LOC: ER 06:03
DX: R33.9 Retention of urine, unspecified (principal); N13.8 Other obstructive and reflux uropathy; I48.91 Unspecified atrial fibrillation; Z79.899 Other long term (current) drug therapy; Z79.2 Long term (current) use of antibiotics
CPT/HCPCS: 36415; 51702; 80048; 81001; 85025; 87088; 96361; 96374; 96375; 96376; 99285; J2270; J2765; J7030; A4314; A4346

== ENCOUNTER 2024-05-10 15:48 | Emergency (ER) | payer OTHER, MEDICARE ==
[~2024-05-10] VITALS: Ht 182.9 cm; Wt 88.0 kg
[2024-05-10 21:20] VITALS: BP 144/82; PULSE 65; RESP 16; TEMP 97.2; O2SAT 97
[2024-05-10] MEDS ORDERED: CIPR750T14 PO (22:03)
[2024-05-10 22:16] LABS: CLARITY,URINE TURBID (Clear); COLOR,URINE RED (Yellow); UA COLLECTION TYPE CLN CATCH MIDSTREAM
[2024-05-10 22:26] LABS: BACTERIA,URINE FEW /HPF (Neg); RBC,URINE TNTC /HPF (0-2); SQUAMOUS EPITHELIAL CELL,UR NONE SEEN /LPF (FEW)
== END 2024-05-10 22:52 | disposition home or self-care (01) ==
LOC: ER 15:48
DX: T83.098A Other mechanical complication of other urinary catheter, initial encounter (principal); N39.0 Urinary tract infection, site not specified; R33.9 Retention of urine, unspecified; R31.0 Gross hematuria; I48.91 Unspecified atrial fibrillation
CPT/HCPCS: 72192; 81001; 87088; 99284; J7030; 51798